=== PATIENT | female | born 1975 | race Hispanic/Latino ===

== ENCOUNTER 2017-06-20 07:13 | Emergency (ER) | payer MEDICARE, OTHER ==
[~2017-06-20] VITALS: Ht 149.9 cm; Wt 49.4 kg
[~2017-06-20 07:13] MED LIST changes: -LIDOCAINE HCL 2% LOCAL INJ 5 ML SDV VIAL INJ ONE; -MIDAZOLAM HCL 2 MG/2 ML VIAL ONE; -PROPOFOL IV EMULSION 10 MG/ML 50 ML VIAL ONE
== END 2017-06-20 13:05 | disposition home or self-care (01) ==
LOC: ER 07:26
DX: Z43.1 Encounter for attention to gastrostomy (principal); G80.9 Cerebral palsy, unspecified; F79 Unspecified intellectual disabilities; G40.909 Epilepsy, unspecified, not intractable, without status epilepticus
CPT/HCPCS: 99283

== ENCOUNTER → 2017-06-20 | Day surgery (SDC) | payer MEDICARE, OTHER ==
[~2017-06-20] MED LIST: ACETAMINOP GT; ACETAMINOPHN-T1 EACH GT; ATIVAN; AZITHROMYC200 MG/5 M PO; AZITHROMYCIN250 MG PO; ENOXAPARIN SQ; FLUCONAZOL IVP; GAS-X125 M1 GT; GLYCOPYRROLATE2 MG GT; HYDROMORPHO IVP; KEFLEX500 MG PO; LIDOCAINE HCL 2% LOCAL INJ 5 ML SDV VIAL INJ ONE; LORAZEPAM IVP; MIDAZOLAM HCL 2 MG/2 ML VIAL ONE; ONDANSETRON IVP; PHENOBARBI IVP; PHENOBARBITAL97.2 MG GT; PROPOFOL IV EMULSION 10 MG/ML 50 ML VIAL ONE; RISPERIDONE1 MG/1 ML PO; Z CLEOCIN IVP; Z PHENOBARBITAL PO; [UNRECOGNIZED DRUG - OTHER] IV; [UNRECOGNIZED DRUG - OTHER] IVP; [UNRECOGNIZED DRUG - OTHER] IVP
--- NOTE | 2017-06-20 16:10 | Operative Report ---
DATE OF PROCEDURE: June 20, 2017 PROCEDURE: Esophagogastroduodenoscopy and PEG tube replacement. INDICATION FOR PROCEDURE: Dysfunctional G tube. MEDICATION: The patient was done under MAC. Please see anesthesiologist's note. PROCEDURE: With the patient in the supine position, the flexible fiberoptic Olympus gastroscope was introduced into the esophagus under direct visualization without any difficulty. There was some patchy erythema noted in the distal esophagus. The scope was then advanced with ease into the stomach traversing a small hiatal hernia. The mucosa overlying the antrum and the body revealed some patchy areas of erythema. The bumper of the old G tube was identified and the old G tube was removed per the pull traction method. The pylorus was of normal contour and shape. It was intubated with ease and the scope was advanced all the way to the 2nd portion of the duodenum. The scope was then withdrawn slowly and the mucosa overlying the proximal 2nd portion and the duodenal bulb appeared to be within normal limits. The scope was then withdrawn back into the stomach and retroflexed, and the fundus appeared to be within normal limits. The previously described hiatal hernia was also noted in the retroflexed position. The scope was then straightened out. PEG tube replacement was carried out through the old G tube stoma. The scope was subsequently withdrawn after documenting a good positioning of the intragastric bumper. The patient tolerated the procedure well. IMPRESSION 1. Mild distal esophagitis. 2. Small hiatal hernia. 3. Gastritis, mild. 4. PEG tube replacement carried out in the usual fashion. PLAN: Restart tube feedings as soon as the patient returns to the facility. Job#: [id number]
== END | disposition home or self-care (01) ==
LOC: OR 08:26
PROVIDERS: ATTEND Internal Medicine Gastroenterology
DX: K94.29 Other complications of gastrostomy (principal); K29.70 Gastritis, unspecified, without bleeding; K20.9 Esophagitis, unspecified; K44.9 Diaphragmatic hernia without obstruction or gangrene; G80.9 Cerebral palsy, unspecified; G40.909 Epilepsy, unspecified, not intractable, without status epilepticus; G83.9 Paralytic syndrome, unspecified
CPT/HCPCS: 43246; J2001; J2250